=== PATIENT | female | born 1995 | race Caucasian/White ===

== ENCOUNTER 2024-12-16 18:17 | Emergency (ER) | payer OTHER, SELFPAY ==
[2024-12-16 18:39] VITALS: BP 131/94
--- NOTE | 2024-12-16 18:58 | ED.MUSCINJ ---
HPI-Injury
General
Chief Complaint: Musculo-Skeletal Complaint
Source: patient
Exam Limitations: none
Time Seen by Provider: 12/16/24 18:55
Nursing documentation reviewed up to this point in time: agreed with
History of Present Illness-Injury
Is this injury a work related problem?: No
Is pt an associate of [facility]/[place]?: No
Initial Injury comments:
Patient to ED with complaint of right knee swelling and pain. NOtes bruising to urbina. States she collided with someone while snowboarding 2 weeks ago. States she injured her knee then but felt like it was improving with time. Now with increased
swelling and bruising. Brought self to ED for eval.
Past History
Past History
ED Past Medical History: None
ED Past Surgical History: None
Review of Systems
Review of Systems
Allergies reviewed?: Yes
All Other Systems: ROS reviewed and negative except as documented in HPI and ROS
Constitutional: Reports no symptoms
Musculoskeletal: Reports joint pain (Pain and swelling to right knee)
Skin: Reports other (bruising right knee and urbina)
Neurological: Reports no symptoms
Psychiatric: Reports no symptoms
Musculoskeletal Injury Exam
Musculoskeletal Injury Exam
Right Medial Knee:
Pain with Movement?: Moderate
Tender to palpation?: Moderate
Soft tissue swelling?: Mild
External deformity and angulation?: None
Joint effusion?: Mild
Contusion?: Moderate
Hematoma-local bleeding into tissue?: Moderate
Strain- Sprain- Tear (Connective tissue injury)?: Moderate
Crepitus with movement?: No
Joint instability?: No
Malalignment/deformity?: No
Range of motion: Limited
Distal skin color and temperature: normal-warm & good color
Capillary Refill: normal
Normal distal neurovascular exam?: Yes
Phy Exam
General Physical Exam
General Presentation: well appearing and no apparent distress
General age: appears stated age
General Skin: warm and dry
General Habitus: normal
General Mental: alert
Musculoskeletal Exam
Musculoskeletal Exam: full ROM and neuro vasc intact
Skin Exam
Skin Exam: normal color, warm/dry and no rash
Psychiatric Exam
Psychiatric Exam: normal mood/affect
Injury Course
Orders/Labs/Results
Orders:
Orders
12/16/24 18:58
Knee, Right 4 or More Views [CR Knee- Right 4 Or More View*] Urgent
Comment:
Reason For Exam: trauma
12/16/24 20:03
Knee Immobilizer Right-Treatme ONCE
*Radiology
Radiology exam reviewed: radiology read reviewed
*Pulse Oximetry
Patient hypoxic: no
*Critical Care Note
Total Time (30-74mins, 75-104mins- exclusive of procedures): Not Applicable
ED Attending Note
-
Portions of this chart may have been created with voice recognition software.� Occasional wrong word or��sound alike� substitutions may have occurred due to the inherent limitations of voice recognition software.
Discharge Plan
Departure
Patient Disposition: Home (Routine Discharge)
Date of Disposition: 12/16/24
Time of Disposition: 20:07
Patient with high blood pressure during this ER visit?: No
Condition: Good
Covid-19: Not Applicable
Discharge Problem:
Knee sprain
Instructions: Knee Immobilizer (DC), Ibuprofen, Knee Sprain ED, RICE Therapy
Referrals:
Morteza Vinson MD [Active] - Call in 1-3 days for appt
Nazia Rai DO [Family Provider] -
Interventions
Interventions:
*Risk Screen - Suicide Last Done: 12/16/24 18:42
*General Assessment Last Done: 12/16/24 18:42
*Neglect/Abuse Screening Last Done: 12/16/24 18:42
ED- Fall Risk Assessment Last Done: 12/16/24 19:52
ED-Musculoskeletal Assessment Last Done: 12/16/24 19:52
Discharge Date and Time
Print Language: PAP[place]
== END 2024-12-16 20:32 | disposition home or self-care (01) ==
LOC: EMR 18:17
PROVIDERS: EMERGENCY PHYSICIAN Emergency Medicine; FAMILY PHYSICIAN Family Medicine
DX: S83.91XA Sprain of unspecified site of right knee, initial encounter (principal); W51.XXXA Accidental striking against or bumped into by another person, initial encounter
CPT/HCPCS: 99283; 29505; 73564

== ENCOUNTER 2025-05-01 21:52 | Emergency (ER) | payer OTHER, SELFPAY ==
[2025-05-01 21:55] VITALS: BP 135/96
--- NOTE | 2025-05-01 22:35 | ED.GENMED ---
History of Present Illness
<Cindy Scruggs PA-C - Last Filed: 05/02/25 02:33>
General
Chief Complaint: Problems
Source: patient
Exam Limitations: none
Time Seen by Provider: 05/01/25 22:07
History of Present Illness
History of Present Illness:
29yo female currently at 16 weeks gestation presenting for loss of heart tones. She went for a routine OB appointment today with Dr. Fischer from [facility]. They were unable to locate the heartbeat on Doppler so she was sent for a
formal ultrasound. No heart beat was located on ultrasound and she was told that she lost the . She is scheduled for a D&C in 6 days. She is here for a second opinion and does not believe she can wait this long for her procedure. She is
currently asymptomatic and denies any vaginal bleeding or abdominal pain.
Past History
<Cindy Scruggs PA-C - Last Filed: 05/02/25 02:33>
Past History
ED Past Medical History: None
ED Past Surgical History: None
Phy Exam
<Cindy Scruggs PA-C - Last Filed: 05/02/25 02:33>
General Physical Exam
General Presentation: well appearing and no apparent distress
General Skin: warm and dry
General Habitus: normal
General Mental: alert
ENT Exam
ENT Exam: normocephalic
Pulmonary Exam
Pulmonary Exam: no respiratory distress
Gastrointestinal Exam
Gastrointestinal Exam: non tender, soft and non distended
Neurological Exam
Neurological Exam: alert
[place] Coma Scale
Eye Opening: Spontaneous
Verbal Response: Oriented
Motor Response: Obeys Commands
GCS Total Score: 15
Skin Exam
Skin Exam: normal color and warm/dry
Psychiatric Exam
Psychiatric Exam: normal mood/affect
Course
<Cindy Scruggs PA-C - Last Filed: 05/02/25 02:33>
Orders/Labs/Results
Orders:
Orders
05/01/25 22:30
US 2nd/3rd Trimester Urgent
Comment:
Reason For Exam: eval for heart rate
Vital Signs
Initial and Last Documented VS:
Initial Vital Signs
Temp Pulse Resp BP Pulse Ox
98.4 F 98 20 135/96 100
05/01/25 21:55 05/01/25 21:55 05/01/25 21:55 05/01/25 21:55 05/01/25 21:55
Last Documented Vital Signs
Temp Pulse Resp BP Pulse Ox
98.4 F 98 20 135/96 100
05/01/25 21:55 05/01/25 21:55 05/01/25 21:55 05/01/25 21:55 05/01/25 22:38
Information
Weeks gestation: N/A
Location: N/A
<Felix Padilla MD - Last Filed: 05/01/25 22:39>
Orders/Labs/Results
Orders:
Orders
05/01/25 22:30
US 2nd/3rd Trimester Urgent
Comment:
Reason For Exam: eval for heart rate
Vital Signs
Initial and Last Documented VS:
Initial Vital Signs
Temp Pulse Resp BP Pulse Ox
98.4 F 98 20 135/96 100
05/01/25 21:55 05/01/25 21:55 05/01/25 21:55 05/01/25 21:55 05/01/25 21:55
Last Documented Vital Signs
Temp Pulse Resp BP Pulse Ox
98.4 F 98 20 135/96 100
05/01/25 21:55 05/01/25 21:55 05/01/25 21:55 05/01/25 21:55 05/01/25 22:38
<Cindy Scruggs PA-C - Last Filed: 05/02/25 02:33>
MDM/Problems Addressed
Differential Diagnosis Includes:
29yoF here for a second opinion after she was diagnosed with a loss at her outpatient OB appt today. Had an ultrasound at [facility] and no heart beat was seen. She is supposed to be 16 weeks . Currently asymptomatic. VSS. She
is well-appearing and in no distress. Abdominal exam is benign.
Bedside ultrasound performed by Dr. Padilla and no heart beat found. She was sent for a formal ultrasound which confirms loss. I discussed case with Dr. Fierro, [facility]. OB does not do D&C procedures after 12 weeks at this campus.
Patient very concerned and does not want to wait 6 days until her procedure. She was encouraged to call her OBGYN tomorrow to see if they can expedite this for her. She was also given contact information for [facility]. Patient discharged in
stable condition.
<Cindy Scruggs PA-C - Last Filed: 05/02/25 02:33>
*Pulse Oximetry
SaO2: 100
Oxygen Mode of Delivery: Room air
Patient hypoxic: no (100%)
*Critical Care Note
Total Time (30-74mins, 75-104mins- exclusive of procedures): Not Applicable
ED Attending Note
<Cindy Scruggs PA-C - Last Filed: 05/02/25 02:33>
-
Portions of this chart may have been created with voice recognition software.� Occasional wrong word or��sound alike� substitutions may have occurred due to the inherent limitations of voice recognition software.
<Felix Padilla MD - Last Filed: 05/01/25 22:39>
ED Attending Note
Patient seen and examined by attending physician: Yes
I performed the substantive portion of visit, reviewed & personally made and approve the management plan that is documented in note by myself or CYNTHIA.: Yes
ED Attending Note:
I have seen and evaluated the patient with a [id number] encounter. I have spoken to the [CYNTHIA] and involved in the medical history, the physical exam, medical decision making.
Evaluation and management service: agree unless noted differently below.
Results interpretation: agree unless noted differently below.
29-year-old woman who is approximately 17 weeks presenting to the emergency department with loss of heart tones. She states that she went to an appointment this week as a routine appointment. During that visit no heartbeat was
heard on Doppler so she was sent for an ultrasound. Unfortunately no heartbeat seen on ultrasound. Patient was scheduled for D&C. She does follow with shavon Snell but came here for second opinion as patient is confused how the baby had a
heartbeat during her last visit. She denies any vaginal bleeding cramping. No fevers or chills. During my evaluation patient is resting comfortably. Her abdomen is benign nondistended soft nontender. I did complete a bedside ultrasound and
ultimately was unable to visualize heartbeat though images were not clear us. Will send patient off for official ultrasound to confirm. Will also discussed with OB be to see if there any other recommendations besides the d and c.
Discharge Plan
Departure
Patient Disposition: Home (Routine Discharge)
Date of Disposition: 05/02/25
Time of Disposition: 00:00
Patient with high blood pressure during this ER visit?: No
Discharge Problem:
demise, less than 22 weeks
Instructions: loss - Discharge instructions
Referrals:
Nazia Rai, DO [Family Provider, Family Practice]
Activity Restrictions/Additional Instructions:
Please call your OB tomorrow for follow-up. You may also call [facility] program: .
Return to the ER with any worsening symptoms including severe pain, heavy bleeding, or fevers.
Interventions
Interventions:
*Risk Screen - Suicide Last Done: 05/01/25 21:55
*General Assessment Last Done: 05/01/25 21:55
*Neglect/Abuse Screening Last Done: 05/01/25 21:55
*ED- Fall Risk Assessment Last Done: 05/02/25 00:11
*ED COVID-19 Vaccine History Last Done: 05/02/25 00:11
*Nursing Disposition Last Done: 05/02/25 00:11
ED-Female Genitourinary Assessment Last Done: 05/01/25 22:30
Discharge Date and Time
Discharge Date/Time: 05/02/25 00:12
Print Language: BRITISH
== END 2025-05-02 00:12 | disposition home or self-care (01) ==
LOC: EMR 21:52
PROVIDERS: EMERGENCY PHYSICIAN Student in an Organized Health Care Education/Training Program; FAMILY PHYSICIAN Family Medicine
DX: O36.4XX0 Maternal care for intrauterine death, not applicable or unspecified (principal); Z3A.17 17 weeks gestation of pregnancy
CPT/HCPCS: 99283; 76805